=== PATIENT | male | born 1940 | race Caucasian/White ===

== ENCOUNTER → 2023-11-10 08:26 | Outpatient (REF) | payer MEDICARE, SELFPAY | LOC: RAD 08:26 | PROVIDERS: ATTENDING PHYSICIAN Nurse Practitioner Adult Health | DX: I35.0 Nonrheumatic aortic (valve) stenosis (principal) | CPT/HCPCS: 74174; 75572; Q9967 ==

== ENCOUNTER 2023-12-01 09:24 | Inpatient (IN) | payer MEDICARE, SELFPAY ==
[2023-11-23 08:21] VITALS: BMI 29.8
[2023-11-23 09:17] LABS: % Basophils 0.9 % (0-2); % Eosinophils 3.2 % (0-6); % Immature Granulocytes 0.2 % (0-0.5); % Lymphocytes 20.5 % (20.5-51.1); % Monocytes 9.9 % (1.7-9.3); % Neutrophils 65.3 % (42.2-75.2); Absolute Eosinophils 0.1 10^3/uL (0-0.7); Absolute Lymphocytes 0.9 10^3/uL (1.2-3.4); Absolute Monocytes 0.4 10^3/uL (0.1-0.6); Absolute Neutrophils 2.8 10^3/uL (1.4-6.5); Hematocrit 41.7 % (39.0-52.0); Hemoglobin 14.4 g/dL (13.0-18.0); Mean Corp Hgb Conc. 34.5 g/dL (33.0-37.0); Mean Corpuscular Hgb 32.3 pg (27.0-31.0); Mean Corpuscular Volume 93.5 fL (80.0-94.0); Mean Platelet Volume 10.7 fL (7.4-10.4); Nucleated Red Blood Cells % 0 % (-); Platelet Count 225 10^3/uL (130-400); Red Blood Cell Count 4.46 10^6/uL (4.70-6.10); Red Cell Dist. Width 14.6 % (11.5-14.5); White Blood Cell Count 4.3 10^3/uL (4.8-10.8)
[2023-11-23 09:29] LABS: Glycohemoglobin (HgbA1c) 6.1 % (4.0-5.6); INR 1.42; PT 17.5 Sec (11.4-14.6)
[2023-11-23 09:30] LABS: APTT 34.7 Sec (23.4-35.0)
[2023-11-23 09:34] LABS: ALT (SGPT) 18 U/L (0-50); AST (SGOT) 25 U/L (17-59); Alkaline Phosphatase 77 U/L (38-126); Blood Urea Nitrogen 26 mg/dl (9-20); Calcium 10.3 mg/dl (8.4-10.2); Carbon Dioxide 29 mmol/L (22-30); Chloride 102 mmol/L (98-107); Direct Bilirubin 0.4 mg/dl (0.0-0.4); Estimated Creatinine Clearance 58 ml/min; Glucose 107 mg/dl (70-99); Potassium 3.7 mmol/L (3.5-5.1); Sodium 139 mmol/L (135-145); Total Protein 6.3 g/dl (6.3-8.2); eGFR > 60.00
[2023-11-23 09:40] LABS: NT-proBNP 3580 pg/ml
[2023-11-23 09:51] LABS: Urine Albumin Negative (Neg - Trace); Urine Bilirubin Negative (Negative); Urine Character Clear (Clear); Urine Color Yellow; Urine Glucose Negative (Negative); Urine Ketone Negative (Negative); Urine Leukocyte Negative (Negative); Urine Nitrite Negative (Negative); Urine Occult Blood Negative (Negative); Urine Urobilinogen Negative (Neg - 1+)
--- NOTE | 2023-11-23 10:10 | CM ---
Met with Mr. Hogue in [facility]. He states prior to admission he resides with his spouse in a one story home with one step to enter. He states prior to admission he was independent with ambulation and adls. He states he does use a walking stick
outside. He states he has a walking stick and CPAP Machine at home. He states he has a prescription plan and uses [facility]. He states his spouse will be home to assist in his care. The discharge plan is to return home with his spouse and a
home visit by the Cardiothoracic Transitional Care Nurse when medically stable.
We reviewed pre-op and post-op routines. We reviewed the shower instructions. He has the soap, written instructions and the TAVR Educational Booklet. We also reviewed restrictions including lifting and driving restrictions. We discussed a home
visit by the Cardiothoracic Transitional Care Nurse. He is agreeable to a home visit. The plan is for TAVR on , 12/01/23.
[2023-12-01] VITALS (14 sets, daily range): BP systolic 129–159; BP diastolic 74–89
[2023-12-01] MEDS: STERILE WATER FOR INJECTION 16 ML IV (13:05)
[2023-12-01] MEDS: ZINACEF 1500 MG IV (13:05)
--- NOTE | 2023-12-01 13:33 | CM ---
Chart reviewed. Patient is in the OR today. Patient is independent of ADLS, lives with his in a 1 STH, 1 ARACELIS, 0 DME. Plan is for the patient to return home with CT Transitional RN. CM to follow
[2023-12-01 14:04] LABS: ACT-LR - POC 269 Seconds (116-155)
[2023-12-01 14:23] LABS: ACT-LR - POC 274 Seconds (116-155)
--- NOTE | 2023-12-01 14:31 | W.CVOR.SURPR ---
CVOR Surgeon Immed Pre Op
-
I have examined this patient prior to performance of the scheduled procedure.
The patient's condition is unchanged from the time of the dictated/written History and
Physical and the patient is able to undergo the scheduled procedure.
--- NOTE | 2023-12-01 14:31 | W.IMMPOSTOP ---
Surgical Immed Post Op Note
-
Dictated: [id number]
STRUCTURAL HEART PROCEDURE NOTE: TAVR
Preoperative Dx:
Severe aortic stenosis (P/M: 62.7/35.3)
Severe MR
Non-obstructive CAD
AF
RBBB
Hx of acute diastolic HF
Neuropathy
Kidney CA
Varicose veins
Postoperative Dx:
Same
Procedures:
1) L BUILDING CONSTRUCTION IRONWORKER access w/ tactile, U/S, and fluoroscopic guidance, micropuncture technique, limited angiography, 6Fr sheath placement
2) L CFV access w/ U/S and fluoroscopic guidance, seldinger technique, 6Fr sheath placement
3) R BUILDING CONSTRUCTION IRONWORKER access w/ tactile, U/S, and fluoroscopic guidance, micropuncture technique, limited angiography, 6Fr sheath placement
4) Placement of temporary RV pacing wire via L CFV access, threshold testing
5) Placement of pigtail catheter in RCC w/ aortography x 4 to confirm ideal co-planar valve deployment angles (AV was extremely horizontal; aorta extremely tortuous)
6) Perclose sutures x 2 into R BUILDING CONSTRUCTION IRONWORKER, 8Fr sheath placement
7) Placement of Blackburn E-sheath via R BUILDING CONSTRUCTION IRONWORKER access (systemic heparinization)
8) Wire purchase across stenotic AV x 2; LVEDP assessment
9) R TF TAVR w/ placement of 29mm GOPAL 3 valve
10) Completion aortography
11) Completion TTE (trace AI, mean gradients from 4mmHg-7mmHg)
12) Removal of valve delivery system w/ R BUILDING CONSTRUCTION IRONWORKER mgmt w/ perclose x 2, 8Fr angioseal, manual pressure; completion ileofemoral angiography
13) Removal of L BUILDING CONSTRUCTION IRONWORKER sheath w/ mgmt w/ 6Fr angioseal, manual pressure
14) Removal of temporary RV pacing wire, L CFV sheath w/ manual pressure (protamine)
Accounting Teacher:
Dr. Jeremiah Hyde
Cardiac Surgeon:
Dr. Jeremías Vega
Anesthesia:
MAC & local to B/L groins
Cath Data:
Start: 1322hrs, Deploy: 1411hrs, End: 1429hrs
FT: 18.6min, mGy: 870.15, DAP: 99.2568, Contrast: 106mL
Post-TTE: trace AI, mean gradients from 4-7mmHg
Implants:
Perclose x 2
8Fr angioseal x 1
6Fr angioseal x 1
29mm GOPAL 3 valve; Model [id number], SN [id number]
Complications:
None
Condition:
Stable/guarded to recovery
--- NOTE | 2023-12-01 14:42 | ITS.CL.TAVR ---
Stranding Supervisor - TAVR Report
TAVR PRocedure
Procedure Report:
TRANSCATHETER AORTIC VALVE REPLACEMENT
Date of Procedure: December 01, 2023
Referring: Dr. Scout Francis
Operators: Drs. Jeremiah Hyde and Jeremías Vega
PROCEDURE PERFORMED:
1. Successful placement of 29 mm Blackburn Tonja S3 aortic valve via right common femoral approach.
PREPROCEDURE NYHA CLASS: 3-4
DESCRIPTION OF PROCEDURE: The patient was referred for assessment of severe symptomatic aortic stenosis and severe mitral regurgitation. Following a comprehensive evaluation it was felt that transcatheter aortic valve replacement (TAVR) would be
the next appropriate treatment strategy in an attempt to improve symptoms. Informed consent was obtained prior to the procedure. A 'time-out' was called and the procedural plan was verbally confirmed by anesthesia, surgery, perfusion, and flue dust laborer
staff.
Arterial access was obtained in the left common femoral artery using ultrasound guidance and micropuncture technique. A 6 Fr. sheath was inserted. Ultrasound guidance was then utilized to gain access in the left common femoral vein and a 6 Fr
sheath was inserted. Attention was then turned to the right common femoral artery. Ultrasound guidance was utilized and access was obtained using micropuncture technique and a 6 Fr. sheath was inserted after confirming appropriate position of the
arteriotomy site for preclosure with 2 Perclose devices.
A transvenous pacemaker wire was then advanced from the left common femoral vein to the right ventricular apex where excellent pacing thresholds were obtained.
An angled pigtail catheter was then advanced to the right coronary cusp with a moderate degree of difficulty. The aorta was uncoiled and the root was horizontal. Angiography was performed to define a coplanar angle facilitating positioning and
delivery of the TAVR device. RAO5 / CAU 18 appeared to be a reasonable coplanar angle.
Preclosure of the right common femoral arteriotomy was then performed using 2 Perclose devices and was followed by placement of an 8 Fr arterial sheath.
An AL-1 catheter was then advanced to the proximal descending thoracic aorta over 0.035' J-tipped guidewire. An Amplatz Estra stiff wire was then advanced through the AL-1 catheter to the proximal descending thoracic aorta. The AL-1 catheter was
removed and the supportive wire was utilized to facilitate delivery of the Blackburn eSheath and dilator. Heparin, 8000 units, was administered and the ACT was monitored throughout the procedure.
The AL-1 catheter was then readvanced through the Blackburn eSheath. The 0.035' stiff wire was allowed to drift across the aortic arch and the AL1 was positioned just above the aortic valve. A Soft-tip Straight wire probed and crossed the stenotic
leaflets. A 125 cm AL 1 catheter was required as the aorta was very tortuous and uncoiled. The 125 cm AL-1 catheter was advanced over the guide wire and into the LV were the LVEDP measured 21 mmHg.
An Amplatz Extra-Stiff wire with a generous curved tip was then advanced to the mid left ventricle. The AL-1 catheter was removed and the Amplatz wire was left in place in order to facilitate delivery of the Blackburn delivery system. A 29 mm
Blackburn TONJA S3 valve was brought to the table and the orientation of the valve on the balloon delivery system was confirmed by all operators. The TONJA S3 valve was advanced through the eSheath and into the proximal descending thoracic aorta.
The TONJA valve was centered on the delivery balloon and the entire system was retroflexed as it crossed the aortic arch in an SKYLER projection. The TONJA S3 delivery system was then advanced across the stenotic aortic leaflets. The pusher was
retracted. Angiography confirmed appropriate positioning of the valve and rapid pacing was undertaken. The 29 mm TONJA S3 valve was deployed during rapid pacing. Valve deployment was uneventful. Aortography following valve deployment suggested
trivial aortic insufficiency.
The post valve deployment transthoracic echocardiogram was notable for a mean gradient of 7 mmHg.
The Blackburn valve delivery system was removed. The Blackburn eSheath was removed and the Perclose knots were advanced to the arteriotomy site with a persistent ooze from the arteriotomy site. An 8 Fr. Angioseal was then advanced to the arteriotomy
site resulting in excellent hemostasis. The Perclose knots were cut. Angiography demonstrated good distal runoff.
A 6 Chinese Angio-Seal was then utilized to obtain hemostasis in the left common femoral artery. The temporary pacemaker was removed with manual pressure held for the femoral venous access site.
Protamine was administered to reverse the intravenous anticoagulant.
Fluoro Time: 18.6 min, Dose: 870 mGy, DAP : 99.3 Gy.cm2
CONCLUSIONS:
1. Severe symptomatic aortic stenosis. Successful deployment of a 29 mm TONJA S3 valve
Copy to: Dr. Scout Francis
[2023-12-01] MEDS: STERILE WATER FOR INJECTION IV (15:17)
[2023-12-01] MEDS: ZINACEF IV (15:17)
--- NOTE | 2023-12-01 15:44 | W.PN.UPDATE ---
Update Note
Progress Note Update
Reviewed Mr. Hogue with the heart team in the preTAVR SDM meeting and confirmed a 29 mm S3 via transfemoral access. Patient will resume Eliquis post TAVR. LVEDP 20mmHg. 29mm S3 (serial# [id number]) successfully deployed via right transfemoral access.
Post implant MG 4-7mmHg.
--- NOTE | 2023-12-01 16:40 | PTCARENOTE ---
Assumed care of pt upon tsf from CCL. Pt arrives awake and alert, Ox3. VSS, CM shows AF 40's, POX 07% on RA. Right and left femoral sites CDI with good CMS throughout, Right femoral vein dsg intact. Pt voided 650 ml's urine upon tsf. He denies
any pain or discomfort, taking sips of water. Movement restritions reviewed with pt and family. Will continue to monitor closely.
[2023-12-01 17:56] LABS: Glucose - Point of Care 112 mg/dl (70-99)
[2023-12-01] MEDS: VISBIOME 1 CAP PO (18:34)
--- NOTE | 2023-12-01 20:00 | PTCARENOTE ---
PT aaox4 w/o complaints of pain, afib on monitor VSS, RA lungs clear, GI and wnl, see worklsit for detailed assessment
[2023-12-01] MEDS: NEURONTIN 200 MG PO (20:51)
[2023-12-01] MEDS: ZESTRIL 20 MG PO (20:52)
[2023-12-01] MEDS: STERILE WATER FOR INJECTION 8.30000000000000071 ML IV (20:53)
[2023-12-01] MEDS: ZINACEF 750 MG IV (20:53)
[2023-12-02] VITALS (11 sets, daily range): BP systolic 117–171; BP diastolic 70–86
--- NOTE | 2023-12-02 01:05 | PTCARENOTE ---
no change from previous assessment
[2023-12-02 05:06] LABS: Hematocrit 38.9 % (39.0-52.0); Hemoglobin 13.6 g/dL (13.0-18.0); Mean Corpuscular Hgb 32.9 pg (27.0-31.0); Mean Platelet Volume 10.4 fL (7.4-10.4); Platelet Count 183 10^3/uL (130-400); Red Blood Cell Count 4.14 10^6/uL (4.70-6.10); Red Cell Dist. Width 14.4 % (11.5-14.5); White Blood Cell Count 8.4 10^3/uL (4.8-10.8)
[2023-12-02 05:23] LABS: Blood Urea Nitrogen 29 mg/dl (9-20); Calcium 9.2 mg/dl (8.4-10.2); Carbon Dioxide 25 mmol/L (22-30); Chloride 102 mmol/L (98-107); Estimated Creatinine Clearance 58 ml/min; Glucose 154 mg/dl (70-99); Potassium 4.1 mmol/L (3.5-5.1); Sodium 137 mmol/L (135-145); eGFR > 60.00
--- NOTE | 2023-12-02 05:40 | W.PN.CT ---
Addendum entered and electronically signed by Jeremías Vega MD 12/02/23 07:58:
I saw and examined the patient.
The PA's note was reviewed and I agree with the note.
Comment:
POD#1 s/p TAVR
No major overnight events. Continue slow AF overnight w/ 3sec pause. AVSS. Groins OK. 8.4>13.6<183; 29/1.0.
- Eliquis only
- Echocardiogram today
- Resume home medications
- Arranging for outpatient HR monitoring on D/C
- D/C planning for potentially later today
Original Note:
Today's Communication / Plan
-
-pod #1
-no significant issues overnight
-slow a-fib 40s-50s overnight with RBBB (pre-existing) with longest pause 3.58 seconds (in bed, asymptomatic)
-Echo today
-current meds (Eliquis, Lasix, Zestril, Procardia, Lipitor)
-encourage IS, OOB, ambulate
-possible d/c
Assessment / Plan
-
- Severe symptomatic - s/p R TF TAVR w/ placement of 29mm GOPAL 3 valve on 12/01/23, pod #1
- Post-TTE: trace AI, mean gradients from 4-7mmHg
- Severe MR
- Chronic diastolic CHF
- EF 60-65% by Echo
- Non-obstructive CAD
- Chronic a-fib, s/p a-fib ablation 08/2020 - on Eliquis at home
- Pre-existing RBBB
- Hx of acute diastolic HF
- Neuropathy
- Kidney CA
- Varicose veins, lymphedema -uses pneumatic compression boots, compression stockings, lymphedema therapy
- Hx LE cellulitis
- Cholecystectomy
- DJD/chronic neck pain
- R TKR
Discussed patient care with: Nursing and Care Team
Subjective
Procedure
- s/p R TF TAVR w/ placement of 29mm GOPAL 3 valve on 12/01/23
-
Date of Service: December 02, 2023
Objective Data
-
PT 17.5 Sec (11.4-14.6) H 11/23/23 08:42
INR 1.42 11/23/23 08:42
APTT 34.7 Sec (23.4-35.0) 11/23/23 08:42
Vital Signs
Vital Signs
Temp Pulse Resp BP Pulse Ox
98.0 F 52 20 136/83 97
12/01/23 23:52 12/01/23 18:00 12/01/23 23:52 12/01/23 20:52 12/01/23 23:52
CT Intake/Output/Weight
12/01/23 12/01/23 12/02/23
06:59 18:59 06:59
Intake Total 600 / 1080 480 / 1080
Output Total 650 / 850 200 / 850
Balance -50 / 230 280 / 230
SaO2: 97
Physical Exam
-
General: Awake and AOx3
Cardiovascular: Irregular rate & rhythm and Murmur (1/6 syst @ R sternal border and 2/6 systolic @ L lateral wall)
Respiratory: Clear
Incision: Other (groins are cdi, soft, nontender, no hematoma b/l)
Extremities: Edema +1 (chronic lymphedema/venostasis b/l, 2+ PT b/l)
Data Reviewed
-
Lab Results: Results Reviewed
Medications: Active Meds Reviewed
Chest X-Ray: Report Reviewed and Image Reviewed
ECG: Report Reviewed and Image Reviewed
--- NOTE | 2023-12-02 07:29 | W.PN.ANS.POP ---
Anesthesia Post Operative
- Anesthesia Post Op Note
Vital Signs Stable-See Nursing Note: Yes
Airway Patent: Yes
Adequate Pain Control: Yes
Change in Mental Status: No
Current Postoperative Nausea & Vomiting: No
Anesthesia Complications: No
General Anesthetic Recall: No
Unplanned Admission: No
Post Op Hydration Adequate: Yes
--- NOTE | 2023-12-02 07:42 | W.DCSUMMARY ---
Documented by User: SHELBY Moise 12/02/23 07:49
Discharge Summary
Discharge Data
Date of Admission: 12/01/23
Date of Discharge: 12/02/23
-
Pending Results: No
Hospital Course
Primary care physician: Samson Cisneros
Outpatient chute feeder: Melecio Hui
Inpatient consultants: [facility]
Procedures:
1. Right transfemoral aortic valve replacement #29 Blackburn GOPAL 3
Primary Diagnosis:
1. Severe aortic stenosis
Secondary Diagnoses:
1. Permanent atrial fibrillation on Eliquis
2. Renal cell cancer
3. Right total knee replacement
4. Osteoarthritis
6. Cholecystectomy
7. A-fib ablation 2019
8. pre-existing right bundle branch block
HPI: Gary Hogue is an 83 year old male electively admitted 12/01/23 for TAVR.
Hospital course: Mr. Hogue underwent right transfemoral TAVR #[address] Blackburn [address] Vega on 12/01/2023 using conscious sedation. He required no pressor support postprocedure. Patient noted to be in slow atrial fibrillation overnight.
Home medication changes:
none
Discharge Plan
-
Patient Disposition: Home (Routine Discharge)
Discharge Diagnosis/Procedures: TF-TAVR, Pacemaker implant
Condition: Fair
Diet: Low Cholesterol and 2 Gram Sodium
Activity: As tolerated
Driving Restrictions: No driving for 1 week
Bathing Restrictions: OK to Shower
Others Tests: Please call Orestes Francis's office to schedule a 30 day follow up echocardiogram
Other Services: Cardiac Rehab
Wound Care: Please do not apply lotions, creams or powders to groin areas. Please monitor areas for increased pain, swelling, redness or drainage. Please notify your doctor if any occur.
Specialty Instructions: Weigh Daily- Call MD for wt gain/loss 3 lbs overnight/5 lbs in 1 week
Stop these medications:: Resume Eliquis on Sat evening 12/03
Stand Alone Forms: DC Inst - Implanted Device
Referrals:
CT Transitional Care Nurse [Outside] (The Cardiothoracic Transitional Care Nurse will call you to set up a visit in 1-2 days.)
Rosa Francis MD [Affiliate] - 12/26/23 10:15 am
Jose Antonio Cisneros MD [Family Provider] -
Prescriptions:
Continued
multivitamin 1 EACH tablet
1 ea PO DAILY
chromium 100 MCG tablet
500 mcg PO QPM
atorvastatin 10 MG tablet
10 mg PO DAILY
lisinopril 20 MG tablet
20 mg PO BID
acetaminophen 500 MG tablet
500 mg PO BID PRN (Reason: pain)
gabapentin 100 MG capsule
200 mg PO BID
L.acidoph, paracasei,B. lactis 1 EACH capsule
1 ea PO QPM
ascorbic acid (vitamin C) [Vitamin C] 1,000 MG tablet
1,000 mg PO DAILY
Artificial Tears (PF) 1 EACH dropperette
1 drp OP BID PRN (Reason: dry eyes)
coenzyme Q10 100 MG tablet
100 mg PO QPM
furosemide 20 MG tablet
40 mg PO DAILY
nifedipine 30 MG tablet extended release 24hr
30 mg PO DAILY
Eliquis 5 MG tablet
5 mg PO BID
pumpkin seed extract-soy germ 300 mg Capsule
1 cap PO QPM
Care Plan Goals
Care Plan Goals:
Problem: Readiness for enhanced knowledge related to diagnosis and treatment plan
Goal: Understand your diagnosis and treatment plan needs, including medications if applicable.
Instructions: Know your diagnosis, underlying causes and treatment plan options, including medications if applicable. Consult with your health care team to learn about your diagnosis and treatment plan, including medications if applicable.

Documented by User: SHELBY Heredia 12/03/23 08:41
Discharge Summary
Discharge Data
Date of Admission: 12/01/23
Date of Discharge: 12/03/23
Total time spent discharging patient (in min): 35
Hospital Course
Primary care physician: Samson Cisneros
Outpatient chute feeder: Melecio Francis
Inpatient consultants: [facility]
Procedures:
1. Right transfemoral aortic valve replacement #29 Blackburn GOPAL 3
Primary Diagnosis:
1. Severe aortic stenosis
Secondary Diagnoses:
1. Permanent atrial fibrillation on Eliquis
2. Renal cell cancer
3. Right total knee replacement
4. Osteoarthritis
6. Cholecystectomy
7. Atrial fibrillation status post ablation 2019
8. pre-existing right bundle branch block
9. Slow atrial fibrillation require permanent pacemaker placement
HPI: Gary Hogue is an 83 year old male electively admitted 12/01/23 for TAVR.
Hospital course: Mr. Hogue underwent right transfemoral TAVR #[address] Blackburn [address] Vega on 12/01/2023 using conscious sedation. He required no pressor support postprocedure. Patient noted to be in slow atrial fibrillation overnight. Due
to this bradycardia, it was discussed with the patient about the need for a PPM. So on 12/02, patient received a LACW �Medtronic, Model [id number] pacemaker (#[id number]), programmed VVIR [address] Villeda. Post-operative TTE showed an LVEF of
55-60% and the peak/mean gradient was 25/14 with a moderate perivalvular aortic regurgitation. On POD #2 from TAVR and POD #1 from PPM, he was deem stable for discharge. Eliquis is scheduled to start tonight. There were no changes to home
medications.
Home medication changes:
none
Discharge Plan
-
Patient Disposition: Home (Routine Discharge)
Discharge Diagnosis/Procedures: TF-TAVR, Pacemaker implant
Condition: Fair
Diet: Low Cholesterol and 2 Gram Sodium
Activity: As tolerated
Driving Restrictions: No driving for 1 week
Bathing Restrictions: OK to Shower
Others Tests: Please call / Penny's office to schedule a 30 day follow up echocardiogram
Other Services: Cardiac Rehab
Wound Care: Please do not apply lotions, creams or powders to groin areas. Please monitor areas for increased pain, swelling, redness or drainage. Please notify your doctor if any occur.
Specialty Instructions: Weigh Daily- Call MD for wt gain/loss 3 lbs overnight/5 lbs in 1 week
Stop these medications:: Resume Eliquis on Sat evening 12/03
Stand Alone Forms: DC Inst - Implanted Device
Referrals:
CT Transitional Care Nurse [Outside] (The Cardiothoracic Transitional Care Nurse will call you to set up a visit in 1-2 days.)
Rosa Francis MD [Affiliate] - 12/26/23 10:15 am
Jose Antonio Cisneros MD [Family Provider] -
Prescriptions:
Continued
multivitamin 1 EACH tablet
1 ea PO DAILY
chromium 100 MCG tablet
500 mcg PO QPM
atorvastatin 10 MG tablet
10 mg PO DAILY
lisinopril 20 MG tablet
20 mg PO BID
acetaminophen 500 MG tablet
500 mg PO BID PRN (Reason: pain)
gabapentin 100 MG capsule
200 mg PO BID
L.acidoph, paracasei,B. lactis 1 EACH capsule
1 ea PO QPM
ascorbic acid (vitamin C) [Vitamin C] 1,000 MG tablet
1,000 mg PO DAILY
Artificial Tears (PF) 1 EACH dropperette
1 drp OP BID PRN (Reason: dry eyes)
coenzyme Q10 100 MG tablet
100 mg PO QPM
furosemide 20 MG tablet
40 mg PO DAILY
nifedipine 30 MG tablet extended release 24hr
30 mg PO DAILY
Eliquis 5 MG tablet
5 mg PO BID
pumpkin seed extract-soy germ 300 mg Capsule
1 cap PO QPM
Care Plan Goals
Care Plan Goals:
Problem: Readiness for enhanced knowledge related to diagnosis and treatment plan
Goal: Understand your diagnosis and treatment plan needs, including medications if applicable.
Instructions: Know your diagnosis, underlying causes and treatment plan options, including medications if applicable. Consult with your health care team to learn about your diagnosis and treatment plan, including medications if applicable.
--- NOTE | 2023-12-02 08:02 | PTCARENOTE ---
Amarjit'luis Mendosa held this Am until it is decided if he is to have a PPM placed today
[2023-12-02] MEDS: TYLENOL 650 MG PO ×2 (08:59→21:19)
[2023-12-02] MEDS: NEURONTIN 200 MG PO ×2 (09:00→19:39)
[2023-12-02] MEDS: THERAGRAN 1 TABLET PO (09:00)
[2023-12-02] MEDS: VITAMIN C 1000 MG PO (09:01)
[2023-12-02] MEDS: LIPITOR 10 MG PO (09:01)
[2023-12-02] MEDS: ZESTRIL 20 MG PO ×2 (09:01→19:39)
[2023-12-02] MEDS: LASIX 40 MG PO (09:02)
--- NOTE | 2023-12-02 09:24 | CM ---
Reviewed chart. Met with Mr. Hogue to review discharge plans. He states he is feeling ok, has a headache. He states he has been ambulating to the bathroom. He states his spouse will be home to assist in his care if needed. We reviewed a home
visit by the Cardiothoracic Transitional Care Nurse . He is agreeable to a home visit. Prior to admission he resides with his spouse in a one story home with one step to enter. He states prior to admission he was independent with ambulation and
adls. He states he sometimes uses a walking stick when outside. He states he has a walking sticks and CPAP Machine at home. He has a prescription plan and uses [facility]. Medical work-up in progress. The discharge plan is to return home
with his spouse and a home visit by the Cardiothoracic Transitional Care Nurse when medically stable.
--- NOTE | 2023-12-02 13:10 | W.PN.CARDCBS ---
Addendum entered and electronically signed by Jeremiah Hyde MD 12/02/23 18:08:
Attending addendum: Patient seen and examined. Telemetry reviewed. Several long pauses noted primarily during sleeping hours, however, given patient's underlying conduction issues we discussed permanent pacemaker placement. Generally feels well.
He will be evaluated by EP service and decision regarding pacemaker will occur later today
Original Note:
Today's Communication / Plan
-
For pacemaker today
Impression / Plan
-
Primary Rehabilitation Team Lead: Dr. Francis of [facility]
Assessment:
-Severe symptomatic atrial stenosis status post right transfemoral GOPAL TAVR 12/01/2023
-Bradycardia/Pauses
-Severe MR
-Chronic diastolic congestive heart failure
-Nonobstructive disease by cath 10/26/2023
-Chronic atrial fibrillation
-History of A-fib ablation 08/2020
-Chronic anticoagulation with Eliquis
-Chronic right bundle branch block
-History of renal carcinoma
-Lymphedema
ECHO 12/01/23: Limited images after TAVR deployment, peak/mean gradients 15/7 mmHg, trace AR
Plan:
-Status post right transfemoral TAVR 12/01/2023
-Patient noted to have slow afib with pauses up to 3.5 seconds on telemetry overnight. He has a chronic right bundle branch block in addition. Plan for pacemaker implant today
-Echo 12/02/2023 pending
-Resume Eliquis only postprocedure
Progress Note - Rehabilitation Team Lead
Subjective
Date of Service: December 02, 2023
Bradycardia and pauses overnight. For pacer today
Objective
Labs:
12/02/23 04:44
12/02/23 04:44
Labs
Hgb 13.6 g/dL (13.0-18.0) 12/02/23 04:44
Hct 38.9 % (39.0-52.0) L 12/02/23 04:44
Plt Count 183 10^3/uL (130-400) 12/02/23 04:44
PT 17.5 Sec (11.4-14.6) H 11/23/23 08:42
INR 1.42 11/23/23 08:42
APTT 34.7 Sec (23.4-35.0) 11/23/23 08:42
Sodium 137 mmol/L (135-145) 12/02/23 04:44
Potassium 4.1 mmol/L (3.5-5.1) 12/02/23 04:44
BUN 29 mg/dl (9-20) H 12/02/23 04:44
Creatinine 1.0 mg/dL (0.7-1.3) 12/02/23 04:44
Glucose 154 mg/dl (70-99) H 12/02/23 04:44
Vital Signs and I&O:
Vital Signs
Temp Pulse Resp BP Pulse Ox
98.5 F 52 16 170/83 98
12/02/23 12:04 12/02/23 12:04 12/02/23 12:04 12/02/23 07:55 12/02/23 12:04
Vital Signs
Temp Pulse Resp BP Pulse Ox
98.5 F 52 16 170/83 98
12/02/23 12:04 12/02/23 12:04 12/02/23 12:04 12/02/23 07:55 12/02/23 12:04
Intake & Output
11/30/23 12/01/23 12/02/23 12/03/23
07:59 07:59 07:59 07:59
Intake Total 1080 / 1080
Output Total 850 / 850
Balance 230 / 230
--- NOTE | 2023-12-02 14:56 | W.PN.UPDATE ---
Update Note
Progress Note Update
Patient is a pleasant 83 year old male with symptomatic severe Aortic stenosis s/p TABR 12/01/2023, severe MR, HFPEF, non-obstructive CAD, permanent AF (OAC with Eliquis, last dose Tuesday11/28/2023), RBBB/LAFB. Spoke at length with patient and his
. Overnight, patient experienced a >3 second pause on telemetry monitoring. Patient has permanent AF with slow ventricular response, RBBB and LAFB at baseline. Recent TTE demonstrates normal LVEF. Patient remains symptomatically bradycardic
without reversible etiologies. Given persistent symptomatic bradycardia (fatigue), advanced conduction disease (RBBB, LAFB), high degree AVB with >3 second pause, and recent TAVR implant will plan for implantation of single chamber pacemaker (left
sided). We discussed pacemaker indications and device implant in detail. For implant there is an approximate 1:1000 risk of WI/stroke/ and a 1% risk of pneumothorax/tamponade/infection/bleeding. We also discussed post procedure implant
restrictions including positions to avoid with implant arm for first six weeks after implant as well as driving restrictions. I took time to answer all questions. Patient and verbalized understanding and agreed to proceed with procedure.
[2023-12-02] MEDS: PROCARDIA XL (EXTENDED RELEASE) PO (15:27)
--- NOTE | 2023-12-02 16:53 | ITS.CL.PACE ---
[employer] - Pacemaker Implant
Pacemaker Implant
Procedure Report:
Primary Care Doctor: Jose Antonio Cisneros MD
Primary Flow Specialist: Scout Francis MD ([facility])
Procedure Date: 12/02/2023
Name of procedure:
1. Placement of a single-chamber pacemaker
2. Subclavian venography
History:
1. Pleasant 83-year-old male with a past medical history significant for severe symptomatic aortic stenosis status post GOPAL TAVR are 12/01/23, severe MR, chronic heart failure preserved ejection fraction, nonobstructive CAD, permanent atrial
fibrillation, chronic anticoagulation with Eliquis, right bundle branch block/LAFB, history renal cell carcinoma, A-fib with symmetric response with pauses up to 3.5 seconds. Noted symptomatic bradycardia without reversible etiology, advanced
conduction disease, 3.5-second pause, recent TAVR implant patient undergoing elective single-chamber pacemaker implantation.
2. Please refer to H&P for complete history.
Indication:
Noted symptomatic bradycardia without reversible etiology, advanced conduction disease (right bundle branch block/LAFB), recent TAVR implant with 3.5-second pause
Methods:
After informed consent was obtained, the patient was brought to the EP laboratory in a postabsorptive, nonsedated state. Peripheral IV access was established. Prophylactic antibiotics were administered prior to incision. Continuous ECG, blood
pressure, and pulse oximetry were initiated. Cardioversion patch electrodes were placed on the patient's chest and back. A grounding patch was applied to the skin. Sedation was administered by anesthesia.
In order to define the extrathoracic portion of the subclavian vein and exclude significant venous obstruction or anomalous anatomy, subclavian venography was performed prior to the procedure. Using the patient's left peripheral IV, contrast was
injected and images were recorded. The left subclavian vein and SVC were found to be widely patent.
The left chest was prepared and draped in a sterile fashion. A time-out was performed. Local anesthesia was injected in the subcutaneous tissue in the infraclavicular area. An incision was made medial to the deltopectoral groove. The subcutaneous
tissue was dissected the level of the prepectoral fascia. A subcutaneous pocket was created. Under fluoroscopic guidance and with the assistance of the images from the venogram, a single venipuncture was made using micropuncture and modified
Seldinger technique. These were performed in the extrathoracic portion of the subclavian vein. Guidewire was passed and single peel-away sheath was placed and used to advance lead into circulation.
Using fluoroscopic guidance, the leads were positioned. The RV lead was advanced to the RV/outflow tract. Ventricular ectopy was recorded. Images were taken in LEOS and UKRAINIAN views to ensure appropriate lead placement. The lead tip was subsequently
positioned on the apical septum. Adequate sensing and pacing parameters were found, and no diaphragmatic stimulation was seen with high-output pacing. The sheath was split and the lead was secured to the fascia with Ethibond ties.
The pocket was flushed with antibiotic solution and hemostasis was assured. Surgiflo was applied. The generator was connected to the lead and placed inside the pocket. The generator was sutured to the fascia and the pocket. The wound was closed
with 3 running layers of absorbable suture, and steri-strips were applied. Dressing applied over steri-strips in standard fashion.
Following the procedure, the patient was taken to the recovery area in stable condition. A chest x-ray was obtained in the holding area.
Lead parameters and device programming:
- RV Lead (Medtronic, Model [id number], #[id number]): Sensing 3.6 mV, Pacing threshold 0.5 V at 0.4 ms, Imp 551 Ohm
- Device: Medtronic, Model W1SR01 pacemaker (#[id number]), programmed VVIR 50 to 130 ppm
Conclusions:
1. Successful placement of a single-chamber pacemaker
2. Subclavian venography
Recommendations:
1. Patient returned to room
2. Single view chest x-ray
3. IV antibiotics while the patient is admitted.
4. OK to resume home medications as indicated; if patient, site, and dressing stable, okay to resume oral anticoagulation 12/03/2023 PM
5. Pressure dressing to be removed in AM, aquacell to remain until wound check
6. Follow-up will be arranged in the office in 7-10 days post-discharge
Blas Villeda DO
Clinical Cardiac Digital Photographic Printer
cc: Jose Antonio Cisneros MD; Scout Francis MD ([facility])
[2023-12-02] MEDS: VISBIOME 1 CAP PO (18:17)
[2023-12-02] MEDS: ANCEF 5 IV (21:20)
--- NOTE | 2023-12-02 23:47 | PTCARENOTE ---
Pt rec'd at change of shift awake,alert with family at bedside. left ant chest pacer with with pressure drsg, and immobilizer in place. No active bleeding or swelling noted. V paced on telemetry . Pt given Tylenol at HS for neck discomfort.
ambulated with staff to bathroom, gait slightly unsteady. call torres placed with reach. pt instructed to call nursing for assist with ambulation.
--- NOTE | 2023-12-02 23:50 | PTCARENOTE ---
b/L groin sites intact.
--- NOTE | 2023-12-03 02:20 | W.PN.CT ---
Addendum entered and electronically signed by Jeremías Vega MD 12/03/23 09:52:
I saw and examined the patient.
The PA's note was reviewed and I agree with the note.
Comment:
POD#2 s/p R TF (29 S3)
POD#1 s/p PPM
No major overnight events. Tm 98.5. 50s AF w/ intermittent V-pacing. 137/77. 96% RA. No gtts. Groin sites OK. UO: spontaneous, adequate. Tolerating PO. Neuro: intact. 6.8>13.2<172; 28/1.0. ECHO: P/M: 25/14 w/ ? moderate PVL; ?
[id number] MR
- Eliquis tonight
- Resume home medications
- D/C home today
Original Note:
Today's Communication / Plan
-
-pod #2
-no issues overnight, wants to go home
-a-fib with V-pacing 50s overnight
-Echo 12/02 with moderate perivalvular aortic regurgitation. Peak/mean gradients across the aortic valve are 25/14 mmHg.
-restart Eliquis for chronic a-fib when ok with EP
-likely d/c today
Assessment / Plan
-
- Severe symptomatic - s/p R TF TAVR w/ placement of 29mm TONJA 3 valve on 12/01/23, pod #2
- Post-TTE: trace AI, mean gradients from 4-7mmHg
- S/p Medtronic VVIR pacer on 12/02/23, pod #1
- Severe MR
- Chronic diastolic CHF
- EF 60-65% by Echo
- Non-obstructive CAD
- Chronic a-fib, s/p a-fib ablation 08/2020 - on Eliquis at home
- Pre-existing RBBB
- Hx of acute diastolic HF
- Neuropathy
- Kidney CA
- Varicose veins, lymphedema -uses pneumatic compression boots, compression stockings, lymphedema therapy
- Hx LE cellulitis
- Cholecystectomy
- DJD/chronic neck pain
- R TKR
- Echo post TAVR 12/02/23:
�Normal left ventricular size and systolic function. Mild concentric left ventricular hypertrophy. LV ejection fraction is 55-60% by Christie's method of discs. Enlarged right ventricular size.
�Severely dilated left atrium. Severely dilated right atrium.
�Eccentric� mitral regurgitation appears moderate to severe. No mitral stenosis.
�29mm Tonja 3. Moderate perivalvular aortic regurgitation. Peak/mean gradients across the aortic valve are 25/14 mmHg.
�Mild tricuspid regurgitation. Estimated pulmonary artery pressure of 30-35 mmHg assuming a right atrial pressure of 8 mmHg.
�Normal pericardium without effusion.
Discussed patient care with: Nursing and Care Team
Subjective
Procedure
- s/p R TF TAVR w/ placement of 29mm TONJA 3 valve on 12/01/23
-
Date of Service: December 03, 2023
Objective Data
-
PT 17.5 Sec (11.4-14.6) H 11/23/23 08:42
INR 1.42 11/23/23 08:42
APTT 34.7 Sec (23.4-35.0) 11/23/23 08:42
Vital Signs
Vital Signs
Temp Pulse Resp BP Pulse Ox
98.1 F 51 20 137/77 96
12/02/23 21:32 12/02/23 21:30 12/02/23 21:32 12/02/23 21:30 12/02/23 21:32
CT Intake/Output/Weight
12/02/23 12/02/23 12/03/23
06:59 18:59 06:59
Intake Total 480 / 1080 240 / 240
Output Total 200 / 850
Balance 280 / 230 240 / 240
SaO2: 96
Physical Exam
-
General: Awake and AOx3
Cardiovascular: Regular rate & rhythm and Murmur (2/6 syst @ L midclav.)
Respiratory: Clear
Incision: Other (groins are soft, nontender, no hematoma b/l. Pacer incision is cdi)
Extremities: Edema +1
Data Reviewed
-
Lab Results: Results Reviewed
Medications: Active Meds Reviewed
Chest X-Ray: Report Reviewed and Image Reviewed
ECG: Report Reviewed and Image Reviewed
[2023-12-03 05:07] VITALS: BP 144/80
[2023-12-03 05:21] VITALS: BMI 29.6
--- NOTE | 2023-12-03 05:49 | PTCARENOTE ---
Pt states he slept well. No c/o pain at present. left ant pacer site with DDI in immobilizer. b/l groin drsg dry and intact. assist of 1 to bathroom. V paced on telemetry with rates occ going down to 40.
[2023-12-03 06:03] LABS: Hemoglobin 13.2 g/dL (13.0-18.0); Mean Corp Hgb Conc. 34.7 g/dL (33.0-37.0); Mean Corpuscular Hgb 32.5 pg (27.0-31.0); Mean Corpuscular Volume 93.6 fL (80.0-94.0); Mean Platelet Volume 10.7 fL (7.4-10.4); Platelet Count 172 10^3/uL (130-400); Red Blood Cell Count 4.06 10^6/uL (4.70-6.10); Red Cell Dist. Width 14.7 % (11.5-14.5); White Blood Cell Count 6.8 10^3/uL (4.8-10.8)
[2023-12-03] MEDS: ANCEF 5 IV (06:09)
--- NOTE | 2023-12-03 06:11 | PTCARENOTE ---
care link express interrogation completed on pacer and sent to [employer] at 0600
[2023-12-03 06:32] LABS: Blood Urea Nitrogen 28 mg/dl (9-20); Calcium 9.2 mg/dl (8.4-10.2); Carbon Dioxide 28 mmol/L (22-30); Chloride 101 mmol/L (98-107); Estimated Creatinine Clearance 58 ml/min; Glucose 103 mg/dl (70-99); Magnesium 2.2 mg/dl (1.6-2.3); Potassium 3.9 mmol/L (3.5-5.1); Sodium 137 mmol/L (135-145); eGFR > 60.00
[2023-12-03 06:38] VITALS: BP 160/85
[2023-12-03 07:46] VITALS: BP 143/87
[2023-12-03] MEDS: PROCARDIA XL (EXTENDED RELEASE) 30 MG PO (07:48)
[2023-12-03] MEDS: THERAGRAN 1 TABLET PO (07:49)
[2023-12-03] MEDS: LIPITOR 10 MG PO (07:49)
[2023-12-03] MEDS: LASIX 40 MG PO (07:49)
[2023-12-03] MEDS: ZESTRIL 20 MG PO (07:49)
[2023-12-03] MEDS: VITAMIN C 1000 MG PO (07:50)
[2023-12-03] MEDS: NEURONTIN 200 MG PO (07:51)
[2023-12-03] MEDS: TYLENOL 650 MG PO (07:58)
--- NOTE | 2023-12-03 08:23 | PTCARENOTE ---
Assumed care of pt from night RN. Pt received awake and alert, sitting at side of bed eating breakfast. VSS, CM shows V-pacing 50's, POX 97% on RA. Immobilizer intact to LA, Aquacell dsg remains CDI, pressure dsg intact. Limb restrictions
reviewed. Pt c/o h/a 12/17, Tylenol 650 mg given as per DEC. Pt for possible d/c today.
--- NOTE | 2023-12-03 08:42 | W.PN.CARDCBS ---
Addendum entered and electronically signed by Matt Griffin DO 12/03/23 09:44:
I saw and examined the patient.
The Lathe Mechanic's note was reviewed and I agree with the note.
Comment:
Plan:
Continues to improve
Reviewed instructions with pt
Incision check [facility] as outpt
Stable for d/c from cardiac standpoint.
Original Note:
Today's Communication / Plan
-
Incision check at [facility] in 7-10 days, will call Tuesday
Stable for d/c to home from CV standpoint
Impression / Plan
-
PCP: Dr. Cisneros
Primary At Risk Specialist: Dr. Francis of [facility]
Assessment:
-Severe symptomatic atrial stenosis status post right transfemoral GOPAL TAVR 12/01/2023
-Bradycardia/Pauses
-s/p Medtronic single chamber PPM 12/02/23
-Severe MR
-Chronic diastolic congestive heart failure
-Nonobstructive disease by cath 10/26/2023
-Chronic atrial fibrillation
-History of A-fib ablation 08/2020
-Chronic anticoagulation with Eliquis
-Chronic right bundle branch block
-History of renal carcinoma
-Lymphedema
ECHO 12/01/23: Limited images after TAVR deployment, peak/mean gradients 15/7 mmHg, trace AR
Echo 12/02/2023: EF 55 to 60%, severely dilated RA/LA, Eccentric MR moderate to severe, #29 GOPAL TAVR are in place with moderate perivalvular regurgitation peak/mean 25/14 mmHg
Plan:
-Patient's pressure dressing removed and underlying Aqaucel dressing intact without drainage or hematoma. Reviewed limb and activity restrictions with patient
-Will call [facility] office on Tuesday to request that they call patient for incision check
-Echo as noted above with moderate perivalvular aortic regurgitation. Peak/mean gradients across the aortic valve are 25/14 mmHg.
-Eliquis resumed
-Stable for d/c to home
Progress Note - At Risk Specialist
Subjective
Date of Service: December 03, 2023
He feels well and says that he wants to go home
Objective
Labs:
12/03/23 05:16
12/03/23 05:16
Labs
Hgb 13.2 g/dL (13.0-18.0) 12/03/23 05:16
Hct 38.0 % (39.0-52.0) L 12/03/23 05:16
Plt Count 172 10^3/uL (130-400) 12/03/23 05:16
PT 17.5 Sec (11.4-14.6) H 11/23/23 08:42
INR 1.42 11/23/23 08:42
APTT 34.7 Sec (23.4-35.0) 11/23/23 08:42
Sodium 137 mmol/L (135-145) 12/03/23 05:16
Potassium 3.9 mmol/L (3.5-5.1) 12/03/23 05:16
BUN 28 mg/dl (9-20) H 12/03/23 05:16
Creatinine 1.0 mg/dL (0.7-1.3) 12/03/23 05:16
Glucose 103 mg/dl (70-99) H 12/03/23 05:16
Vital Signs and I&O:
Vital Signs
Temp Pulse Resp BP Pulse Ox
97.7 F 52 16 143/87 97
12/03/23 07:43 12/03/23 08:30 12/03/23 07:43 12/03/23 07:46 12/03/23 08:17
Vital Signs
Temp Pulse Resp BP Pulse Ox
97.7 F 52 16 143/87 97
12/03/23 07:43 12/03/23 08:30 12/03/23 07:43 12/03/23 07:46 12/03/23 08:17
Intake & Output
12/01/23 12/02/23 12/03/23 12/04/23
06:59 06:59 06:59 06:59
Intake Total 1080 / 1080 480 / 480
Output Total 850 / 850
Balance 230 / 230 480 / 480
Physical Exam
Physical Exam
GEN: NAD. AAOx3
HEENT: EOMI, MMM
LUNGS: CTA B/L
CV: Left ACW implant site bulky pressure dressing removed to reveal intact Aquacel underneath without tenderness, hematoma, ecchymosis or drainage. Reg, S1/S2, 1-2/6 syst LSB
ABD: soft, BS+
EXT: No edema B/L
NEURO: Gross non-focal
SKIN: No rash
--- NOTE | 2023-12-03 12:42 | PTCARENOTE ---
All D/C info reviewed with pt and family. All questions answered. Pt D/C'd home with family.
== END 2023-12-03 12:43 | disposition home or self-care (01) | DRG 267 ==
LOC: IVU 09:24
PROVIDERS: Internal Medicine Cardiovascular Disease; Nurse Practitioner Adult Health; Physician Assistant Medical; ADMITTING PHYSICIAN Thoracic Surgery (Cardiothoracic Vascular Surgery); CONSULT PHYSICIAN Internal Medicine Interventional Cardiology; FAMILY PHYSICIAN Internal Medicine
PROC: 02RF38Z Replacement of Aortic Valve with Zooplastic Tissue, Percutaneous Approach (ICD-10-PCS; 2023-12-01)
PROC: 02HK3JZ Insertion of Pacemaker Lead into Right Ventricle, Percutaneous Approach (ICD-10-PCS; 2023-12-02)
PROC: 0JH604Z Insertion of Pacemaker, Single Chamber into Chest Subcutaneous Tissue and Fascia, Open Approach (ICD-10-PCS; 2023-12-02)
PROC: B5171ZZ Fluoroscopy of Left Subclavian Vein using Low Osmolar Contrast (ICD-10-PCS; 2023-12-02)
DX: I08.0 Rheumatic disorders of both mitral and aortic valves (principal); Z00.6 Encounter for examination for normal comparison and control in clinical research program; I45.2 Bifascicular block; I48.21 Permanent atrial fibrillation; I50.32 Chronic diastolic (congestive) heart failure; R00.1 Bradycardia, unspecified; I44.30 Unspecified atrioventricular block; I25.10 Atherosclerotic heart disease of native coronary artery without angina pectoris; G62.9 Polyneuropathy, unspecified; I83.90 Asymptomatic varicose veins of unspecified lower extremity; M19.90 Unspecified osteoarthritis, unspecified site; Z79.01 Long term (current) use of anticoagulants; Z85.528 Personal history of other malignant neoplasm of kidney
CPT/HCPCS: 93308; 33207; 33361; 36415; 71045; 71046; 80048; 80053; 81003; 82248; 82962; 83036; 83735; 83880; 85025; 85027; 85347; 85610; 85730; 86850; 86900; 86901; 86920; 87070; 93005; 93306; 93321; 93325; C1760; C1769; C1786; C1892; C1894; C1898; Q9967